=== PATIENT | female | born 1980 | race Caucasian/White ===

== ENCOUNTER 2017-01-20 10:35 | Day surgery (SDC) | payer OTHER ==
[2017-01-19 14:45] VITALS: BMI 26.4
[2017-01-20 12:18] VITALS: TEMP 97.8
[2017-01-20 13:39] VITALS: BP 99/60; PULSE 53
--- NOTE | 2017-01-21 14:50 | PATH ---
Surgical Pathology Report Patient Name: DANILO PARRA [facility]. Rec. #: [id number] /Age/Gender: 1980 (Age: 36) / F Account: [id number] Location: [facility]-ENDOSCOPY Taken: 01/20/2017 Received: 01/20/2017 Reported: 01/21/2017 Physicians: Daquan Larry M.D. Specimen(s) Received A: BX 2ND PORTION OF DUODENUM B: BX ANTRUM EROSION C: BX GE JUNCTION THICKENED FOLD D: BX IRREGULAR Z LINE Clinical History GERD Antral erosions, thickened fold GE junction, irregular Z-line Final Diagnosis A. DUODENUM, SECOND PORTION, BIOPSY: DUODENAL MUCOSA WITHOUT SIGNIFICANT PATHOLOGIC CHANGES. NO HISTOLOGIC EVIDENCE OF GLUTEN SENSITIVE ENTEROPATHY (CELIAC DISEASE). B. STOMACH, ANTRUM, EROSION, BIOPSY: GASTRIC ANTRAL MUCOSA WITH MODERATE CHRONIC GASTRITIS AND REACTIVE GASTROPATHY WITH FOCAL SURFACE EROSION. IMMUNOSTAIN FOR H. PYLORI IS NEGATIVE FOR ORGANISMS. C. GE JUNCTION, THICKENED FOLD, BIOPSY: COLUMNAR CARDIA-TYPE MUCOSA WITH CHRONIC INFLAMMATION AND HYPERPLASTIC CHANGE. NO SQUAMOUS EPITHELIUM PRESENT. NO INTESTINAL METAPLASIA (CANTRELL'S ESOPHAGUS) OR DYSPLASIA IDENTIFIED. D. IRREGULAR Z-LINE, BIOPSY: SQUAMOCOLUMNAR JUNCTIONAL MUCOSA WITH MARKED CHRONIC INFLAMMATION AND REFLUX TYPE CHANGES. NO INTESTINAL METAPLASIA (CANTRELL'S ESOPHAGUS) IDENTIFIED. Electronically Signed Chad Lira M.D. Gross Description A. Received in formalin, labeled "biopsy second portion of duodenum" are 2 segundo, irregular portions of soft tissue measuring 0.1 and 0.3 cm in greatest dimension. The specimens are submitted in toto in one cassette. B. Received in formalin, labeled "biopsy erosion antrum" are 2 segundo, irregular portions of soft tissue averaging 0.4 cm. in greatest dimension. The specimens are submitted in toto in one cassette. C. Received in formalin, labeled "biopsy thickened fold GE junction" is a segundo, irregular portion of soft tissue measuring 0.4 cm in greatest dimension. The specimen is submitted in toto in one cassette. D. Received in formalin, labeled "biopsy irregular Z line" is a segundo, irregular portion of soft tissue measuring 0.3 cm in greatest dimension. The specimen is submitted in toto in one cassette. DL/01/20/2017 saudi01/20/2017
== END 2017-01-20 13:39 | disposition home or self-care (01) ==
LOC: JASU-ENDO 10:35
PROVIDERS: ATTEND Internal Medicine Gastroenterology
PROC: 0DB98ZX Excision of Duodenum, Via Natural or Artificial Opening Endoscopic, Diagnostic (ICD-10-PCS; 2017-01-20)
PROC: 0DB68ZX Excision of Stomach, Via Natural or Artificial Opening Endoscopic, Diagnostic (ICD-10-PCS; 2017-01-20)
PROC: 0DB48ZX Excision of Esophagogastric Junction, Via Natural or Artificial Opening Endoscopic, Diagnostic (ICD-10-PCS; principal; 2017-01-20 11:00)
DX: K25.9 Gastric ulcer, unspecified as acute or chronic, without hemorrhage or perforation (principal)
CPT/HCPCS: 84703; 88305-TC; 88342-TC